=== PATIENT | male | born 1995 | race Caucasian/White ===

== ENCOUNTER 2017-04-24 20:45 | Emergency (ER) | payer OTHER ==
[~2017-04-24] VITALS: Ht 172.7 cm; Wt 71.9 kg
[2017-04-24 20:48] VITALS: TEMP 36.4; Ht 172.7 cm; Wt 71.9 kg
[2017-04-24] MEDS ORDERED: PROPARACAINE HCL 0.5% OP SOLN 15 ML BTL OP STA (21:09)
[2017-04-24 22:08] VITALS: BP 126/76; PULSE 70; O2SAT 98
--- NOTE | 2017-04-25 01:42 | EMERGENCY ROOM VISIT NOTE ---
History First contact with patient: 21:09 Chief Complaint: EYE ASSESSMENT Stated Complaint: EYE PAIN History of Present Illness The patient is a 22 year old male who presents to the Emergency Room with complaints of a right eye injury playing basketball prostate one hour ago. The patient went up for a rebound and another player accidentally hit him in the face. He now reports persistent eye discomfort. He did initially have change in vision that has since completely resolved. He denies any headache, neck pain or other injuries from this incident, and currently rates his discomfort a 1 out of 10. Tetanus immunization is up-to-date within the past 10 years. Patient is uncertain of the exact date. Review of Systems 10 system review was performed and was negative except for pertinent positives and negatives as indicated in history of present illness Past Medical/Surgical History Medical Problems: (1) No significant past medical history Surgical Problems: (1) No history of previous surgery Family History Unremarkable Social History Smoking Status: Never Smoker Alcohol Use: none Marital Status: single Occupation Status: [employer] student Physical Exam Vital Signs Date Time Temp Pulse Resp B/P (MAP) Pulse Ox O2 Delivery O2 Flow Rate FiO2 04/24/17 22:08 70 16 126/76 98 04/24/17 20:48 36.4 53 18 114/74 100 Room Air Right Eye Acuity: 20/30 W/O CORRECTIVE LENSES Left Eye Acuity: 20/30 W/O CORRECTIVE LENSES Physical Exam CONSTITUTIONAL: Healthy and well nourished. Alert and oriented X 3 with positive affect. Patient does not appear in any acute distress. HEENT: Normocephalic, atraumatic. Pupils equal, round and reactive. The patient has a mild inferolateral subconjunctival hemorrhage. No bloody drainage noted. EOMs intact without discomfort. No tenderness to palpation of the facial bones. Visual acuity was reviewed and normal. Visual field defects noted on exam. NECK: Full active range of motion without discomfort. MUSCULOSKELETAL: Full range of motion of all joints without discomfort. INTEGUMENTARY: No rash or other significant dermatologic conditions noted. NEUROLOGIC: No focal neurologic deficits noted. Medical Decision & Procedures Procedure Slit lamp and fluorescein exam were performed. 2 drops of Alcaine were instilled into the eye with complete resolution of the patient's discomfort. Slit lamp exam shows negative hyphema. No lacerations are noted. Fluorescein exam shows a small marginal abrasion of the cornea at 7:00. Automatic tonometry was also performed with equal pressures of 11 mmHg in both eyes. ED Course Patient history and physical exam were performed. Nurse's notes were reviewed. Vital signs were reviewed and were normal. Slit lamp and fluorescein exam shows a small corneal abrasion. The patient was encouraged to intermittently apply ice to the eye. Ibuprofen and Tylenol in alternating fashion as needed for additional symptomatic relief. The patient was encouraged to follow-up with ophthalmology if symptoms are not improving within the next 48 hours, or if significant start to progressively worsened. The patient was happy with plan of care, and voiced understanding of all discharge instructions. Medical Decision Medication Reconcilliation Current Medication List: was personally reviewed by ct Blood Pressure Screening Patient's blood pressure: Normal blood pressure Impression Primary Impression: Right corneal abrasion Departure Information Dispostion Home / Self-Care Condition FAIR Referrals John Reyna M.D. Forms HOME CARE DOCUMENTATION FORM, IMPORTANT VISIT INFORMATION Patient Instructions Corneal Injury, My [facility] Additional Instructions Intermittently apply an ice pack as needed for discomfort. Ibuprofen 800 mg and/or Tylenol 1000 mg every 8 hours. You may also alternate these medications for more effective pain relief: Ibuprofen --4 HRS--> Tylenol --4 HRS--> ibuprofen --4 HRS--> Tylenol .... Follow-up with Dr. Reyna, foundry supervisor, if symptoms are not improving within the next 48 hours. Problem Qualifiers Primary Impression: Right corneal abrasion Encounter type: initial encounter Qualified Codes: S05.01XA - Injury of conjunctiva and corneal abrasion without foreign body, right eye, initial encounter
== END 2017-04-24 22:08 | disposition home or self-care (01) ==
LOC: C.EDB 20:46 → C.EDD 22:08
DX: S05.01XA Injury of conjunctiva and corneal abrasion without foreign body, right eye, initial encounter (principal); W50.0XXA Accidental hit or strike by another person, initial encounter